=== PATIENT | female | born 2000 | race Caucasian/White ===

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

== ENCOUNTER 2022-11-06 14:19 | Outpatient (REF) | payer OTHER, SELFPAY ==
--- NOTE | 2022-11-06 13:15 | PAPFT_PTH ---
PATIENT: Matilda Mota LOC: [facility]#:[id number] AGE/SX: 22/F ROOM: RE11/06/[address]: Deysi Tracy : 2000 BED: DIS: 11/06/2022 SPEC #: [id number] RECD: 11/06/22 17:55 STATUS: MISBAH REQ #: [id number] CLEOPATRA: 11/06/22 13:[address]: Deysi Tracy DEPT: [facility] Cytology RECD BY: Viviane Martin Tissues: 1 - CX/ENDOCX FOR PAP SMEARS Procedures: PAP THIN PREP/[facility] Screening Comments: [id number] (HPV CANCELED, SPECIMEN STABILITY TIME EXCEEDED)
[2022-11-09 13:32] LABS: Chlamydia Result Negative (Negative); GC Result Negative (Negative)
== END 2022-11-06 14:20 | disposition home or self-care (01) ==
LOC: NCHCN 14:19
PROVIDERS: PCP Physician Assistant Medical; Visit Provider Physician Assistant Medical
DX: Z12.4 Encounter for screening for malignant neoplasm of cervix (principal); R87.612 Low grade squamous intraepithelial lesion on cytologic smear of cervix (LGSIL); Z11.3 Encounter for screening for infections with a predominantly sexual mode of transmission
CPT/HCPCS: 87491; 87591; 88142

== ENCOUNTER 2024-06-28 16:40 | Outpatient (REF) | payer OTHER, SELFPAY ==
--- NOTE | 2024-06-28 13:30 | PAPFT_PTH ---
PATIENT: Matilda Mota LOC: [facility]#:[id number] AGE/SX: 23/F ROOM: RE06/28/[address]: Deysi Tracy : 2000 BED: DIS: 06/28/2024 SPEC #: [id number] RECD: 06/28/24 17:38 STATUS: MISBAH REQ #: [id number] CLEOPATRA: 06/28/24 13:[address]: Deysi Tracy DEPT: [facility] Cytology RECD BY: Viviane Martin Tissues: 1 - CX/ENDOCX FOR PAP SMEARS Procedures: PAP THIN PREP/[facility] Screening Comments: [id number]
== END 2024-06-28 16:41 | disposition home or self-care (01) ==
LOC: NCHCN 16:40
PROVIDERS: PCP Physician Assistant Medical; Visit Provider Physician Assistant Medical
DX: Z12.4 Encounter for screening for malignant neoplasm of cervix (principal)
CPT/HCPCS: 88142